=== PATIENT | female | born 2005 | race Hispanic/Latino ===

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

== ENCOUNTER → 2024-02-04 12:02 | Outpatient (REF) | payer OTHER, SELFPAY ==
[2024-02-04 13:50] LABS: FSH 4.2 mIU/ml; Prolactin 14.4 ng/ml (3.0-18.6)
[2024-02-04 14:04] LABS: TSH 0.42 uIU/ml (0.47-4.68)
[2024-02-04 14:05] LABS: Estradiol 58.2 pg/ml
[2024-02-06 11:27] LABS: DHEA Sulfate 265 ug/dL (63-373)
== END ==
LOC: CLINIC 12:02
PROVIDERS: ATTENDING PHYSICIAN Obstetrics & Gynecology Gynecology
DX: Z20.2 Contact with and (suspected) exposure to infections with a predominantly sexual mode of transmission (principal); E28.2 Polycystic ovarian syndrome
CPT/HCPCS: 82627; 82670; 83001; 83002; 83498; 84146; 84443